=== PATIENT | female | born 1990 | race African-American/Black ===

== ENCOUNTER 2024-03-30 09:38 | Emergency (ER) | payer OTHER ==
[2024-03-30 10:08] LABS: Absolute Eosinophils 0.1 K/uL (0-0.5); Absolute Lymphocytes (CBC) 1.3 K/uL (0.7-4.9); Absolute Monocytes 0.6 K/uL (0.1-1.3); Basophils % 0.5 % (0-1.3); Eosinophils % 1.3 % (0-4.4); Hematocrit 29.2 % (36.0-45.0); Hemoglobin 9.2 g/dL (12.0-15.0); Lymphocytes % 21.5 % (15.3-44.8); MCH 22.4 pg (27.0-35.0); MCHC 31.6 g/dL (32.0-36.0); MCV 70.9 fL (80-100); MPV 8.8 fL (7.6-11.3); Monocytes % 10.4 % (3.3-12.3); Neutrophils % 66.3 % (41.7-73.7); Platelets 140 thou/uL (152-406); RBC Red Blood Cell Count 4.11 M/uL (3.86-4.86); Red Cell Distribution Width 13.7 % (12.1-15.2)
[2024-03-30 10:20] LABS: Anion Gap 8.7 mEq/L (5.0-15.0); Potassium 3.7 mEq/L (3.5-5.1)
--- NOTE | 2024-03-30 11:19 | RAD REPORT ---
EXAM: OB Limited HISTORY: ABD PAIN COMPARISON: 01/07/2024 TECHNIQUE: Multiple grayscale and color Doppler images were obtained in a transabdominal pelvic ultra sound. Spectral analysis of the Doppler waveforms of the ovaries were performed. FINDINGS: UTERUS: Single cephalic presenting gestation identified. Femur length measures 4.7 cm which is consis tent with 25 week 5 day. A heart rate is detected at 145 bpm. ULICES is within normal limits. The cervix is closed at 3.9 cm. No free fluid is seen in the pelvis. IMPRESSION: Single cephalic presenting gestation measuring 25 week 5 day. ULICES is within normal limits . The cervix is closed.
--- NOTE | 2024-03-30 11:29 | EDPHYS ---
Physician Documentation [facility] Name: Rosanna Rocha Age: 34 yrs Sex: Female : 1990 Arrival Date: 03/30/2024 Time: 09:38 Bed 14 Private MD: ED Physician Aidan Cespedes HPI: 03/30 09:52 This 34 yrs old Black Female presents to ER via EMS with complaints of abdominal pain, sb4 30 weeks . 09:52 The patient presents to the emergency department with abdominal pain, of the right sb4 lower quadrant and left lower quadrant, that started just prior to arrival. The estimated gestational age is 30 weeks. course: care: private OB physician, Leakage of Fluid: none appreciated, Ultrasound: the patient had an ultrasound, Risk/complications: advanced maternal age. Previous pregnancies: in previous pregnancies patient has had vaginal delivery, no complications. Associated signs and symptoms: The patient has no apparent associated signs or symptoms. The patient has not experienced similar symptoms in the past. The patient has not recently seen a physician. 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 - Infectious Disease History:: Denies. - Social history:: Smoking status: Patient denies any tobacco usage or history of. ROS: 09:53 Constitutional: Negative for fever, chills, and weight loss, sb4 09:53 Abdomen/GI: Positive for abdominal pain, 09:53 All other systems are negative, Exam: 09:53 Head/Face: Normocephalic, atraumatic. Eyes: Extra-ocular motions intact. Periorbital sb4 areas with no swelling, redness, or edema. ENT: Mucous membranes moist. Abdomen/GI: Soft, non-tender, no distension. 09:53 Constitutional: The patient appears alert, awake, in obvious pain, uncomfortable, 09:54 Cardiovascular: Regular rate and rhythm with a normal S1 and S2. Respiratory: No sb4 increased work of breathing, no retractions or nasal flaring. Skin: Warm, dry with normal turgor. Normal color with no rashes, no lesions, and no evidence of cellulitis. Vital Signs: 09:45 BP 104 / 75; Pulse 84; Resp 18 S; Temp 97.8(TE); Pulse Ox 100% on R/A; aa5 11:00 BP 107 / 68; Pulse 78; Resp 18 S; Pulse Ox 99% on R/A; aa5 MDM: 09:43 Medical Screening Exam initiated sb4 11:28 Data reviewed: vital signs, nurses notes, EMS record, lab test result(s), radiologic sb4 studies, and as a result, I will discharge patient. Counseling: I had a detailed discussion with the patient and/or guardian regarding the historical points, exam findings, and any diagnostic results supporting the discharge/admit diagnosis, lab results, radiology results, the need for outpatient follow up, an OB/Gyne specialist, to return to the emergency department if symptoms worsen or persist or if there are any questions or concerns that arise at home. 03/30 09:44 Order name: Basic Metabolic Panel; Complete Time: 10:23 sb4 03/30 09:44 Order name: CBC with Diff; Complete Time: 10:15 sb4 03/30 09:44 Order name: US OB Limited: hernia ?; Complete Time: 11:25 sb4 03/30 09:44 Order name: IV Saline Lock; Complete Time: 09:58 sb4 03/30 09:44 Order name: Labs collected and sent; Complete Time: 09:58 sb4 Administered Medications: No medications were administered Disposition Summary: 03/30/24 11:28 Discharge Ordered Notes: Location: Home sb4 Problem: an ongoing problem sb4 Symptoms: have improved sb4 Condition: Stable sb4 Diagnosis - 25 weeks gestation of sb4 - Abdominal pain, Generalized sb4 Followup: sb4 - With: Private Physician - When: 2 - 3 days - Reason: Recheck today's complaints, Re-evaluation by your physician Discharge Instructions: - Discharge Summary Sheet sb4 - Abdominal Pain During sb4 - and Anemia sb4 Forms: - Patient Portal Instructions sb4 - Leadership Thank You Letter sb4 Signatures: Dispatcher [employer] Zina Ferris RN RN aa5 Liudmila Vilchis RN RN ll1 Nallely Virk PA-C PA-C sb4 Corrections: (The following items were deleted from the chart) 09:45 09:45 OB Limited+US.RAD.BRZ ordered. EDMS EDMS 09:54 09:53 : Gravid exam: sb4 sb4 10:59 09:47 Transvaginal Ob+US.RAD.BRZ ordered. EDMS EDMS
--- NOTE | 2024-03-30 11:29 | ER ---
Nurse's Notes [facility] Name: Rosanna Rocha Age: 34 yrs Sex: Female : 1990 Arrival Date: 03/30/2024 Time: 09:38 Bed 14 Private MD: Diagnosis: 25 weeks gestation of ;Abdominal pain, Generalized Presentation: 03/30 09:45 Chief complaint: Patient states: G3, P2 Abdominal pains for over a month. Coronavirus ll1 screen: Client denies travel out of the [place] in the last 14 days. At this time, the client does not indicate any symptoms associated with coronavirus-19. Ebola Screen: Patient denies travel to an Ebola-affected area in the 21 days before illness onset. Initial Sepsis Screen: Does the patient meet any 2 criteria? No. Patient's initial sepsis screen is negative. Does the patient have a suspected source of infection? No. Patient's initial sepsis screen is negative. Risk Assessment: Do you want to hurt yourself or someone else? Patient reports no desire to harm self or others. Onset of symptoms was March 30, 2024. 09:45 Method Of Arrival: EMS ll1 09:45 Acuity: OTF 3 ll1 Triage Assessment: 09:46 General: Appears distressed, uncomfortable, Behavior is appropriate for age, restless. ll1 Pain: Complains of pain in abdomen. GI: Reports lower abdominal pain, cramping. 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 - Infectious Disease History:: Denies. - Social history:: Smoking status: Patient denies any tobacco usage or history of. Screenin:50 [facility] ED Fall Risk Assessment (Adult) History of falling in the last 3 months, aa5 including since admission No falls in past 3 months (0 pts) Confusion or Disorientation No (0 pts) Intoxicated or Sedated No (0 pts) Impaired Gait No (0 pts) Mobility Assist Device Used No (0 pt) Altered Elimination No (0 pt) Score/Fall Risk Level 0 - 2 = Low Risk Oriented to surroundings, Maintained a safe environment, Educated pt \\T\\ family on fall prevention, incl call for assistance when getting out of bed. Abuse screen: Denies threats or abuse. Nutritional screening: No deficits noted. Tuberculosis screening: No symptoms or risk factors identified. Assessment: 09:50 General: Appears comfortable, Behavior is calm, cooperative. Pain: Complains of pain in aa5 right lower quadrant and left lower quadrant Pain currently is 8 out of 10 on a pain scale. Quality of pain is described as crampy, Pain began Pt states "ever since I turned 25 weeks " Is episodic, lasting a few seconds. Neuro: Level of Consciousness is awake, alert, obeys commands, Oriented to person, place, time, situation. Cardiovascular: Patient's skin is warm and dry. Respiratory: Airway is patent Respiratory effort is even, unlabored, Respiratory pattern is regular, symmetrical. GI: Abdomen is round. : No signs and/or symptoms were reported regarding the genitourinary system. Denies vaginal bleeding. EENT: No signs and/or symptoms were reported regarding the EENT system. Derm: Skin is dry, Skin is normal, Skin temperature is warm. Musculoskeletal: Range of motion: intact in all extremities. 10:13 Reassessment: US at bedside . aa5 11:10 Neuro: Level of Consciousness is awake, alert, obeys commands, Oriented to person, aa5 place, time, situation. Respiratory: Airway is patent Respiratory effort is even, unlabored, Respiratory pattern is regular, symmetrical. Derm: Skin is dry, Skin is normal, Skin temperature is warm. 11:45 Reassessment: Patient is alert, oriented x 3, equal unlabored respirations, skin aa5 warm/dry/pink. Vital Signs: 09:45 BP 104 / 75; Pulse 84; Resp 18 S; Temp 97.8(TE); Pulse Ox 100% on R/A; aa5 11:00 BP 107 / 68; Pulse 78; Resp 18 S; Pulse Ox 99% on R/A; aa5 ED Course: 09:43 Patient arrived in ED. ll1 09:43 Nallely Virk PA-C is PHCP. sb4 09:43 Aidan Cespedes MD is Attending Physician. sb4 09:43 Arm band placed on Patient placed in an exam room, on a stretcher. ll1 09:46 Triage completed. ll1 09:48 Zina Howard, RN is Primary Nurse. aa5 09:50 Patient has correct armband on for positive identification. Placed in gown. Bed in low aa5 position. Call light in reach. Side rails up X2. Pulse ox on. NIBP on. 09:57 Initial lab(s) drawn, by me, sent to lab. Inserted saline lock: 22 gauge in right aa5 forearm, using aseptic technique. Blood collected. Flushed with 10 mL NS. 10:15 No provider procedures requiring assistance completed. aa5 11:00 US OB Limited: hernia ? In Process Unspecified. EDMS 11:45 IV discontinued, intact, bleeding controlled, No redness/swelling at site. Pressure aa5 dressing applied. Administered Medications: No medications were administered Medication: 10:13 VIS not applicable for this client. aa5 Outcome: 11:28 Discharge ordered by . sb4 11:45 Discharged to home ambulatory, aa5 11:45 Condition: stable 11:45 Discharge instructions given to patient, Instructed on discharge instructions, follow up and referral plans. Demonstrated understanding of instructions, follow-up care, 11:49 Patient left the ED. aa5 Signatures: Dispatcher [employer] EDFL Zina Howard, RN RN aa5 Liudmila Vilchis, GERARDO RN ll1 Nallely Virk, PA-C PA-C sb4
[2024-03-30 14:50] VITALS: BP 104/75; TEMP 97.8; O2SAT 100
== END 2024-03-30 11:49 | disposition home or self-care (01) ==
LOC: ER 09:38
DX: O26.892 Other specified pregnancy related conditions, second trimester (principal); R10.84 Generalized abdominal pain; Z3A.25 25 weeks gestation of pregnancy
CPT/HCPCS: 36415; 76815; 80048; 85025; 99284